=== PATIENT | male | born 1935 | race African-American/Black ===

== ENCOUNTER 2020-02-13 21:33 | Emergency (ER) | payer MEDICARE, OTHER ==
[~2020-02-13] VITALS: Ht 180.3 cm; Wt 91.0 kg
[2020-02-13 21:38] VITALS: BP 160/100
[2020-02-13] MEDS ORDERED: EPINEPHRINE 0.1MG/ML (1:10,000) 10ML SYR ONE (23:00)
[2020-02-14 01:38] LABS: HEMATOCRIT. 37.5 % (42.0-52.0); HEMOGLOBIN. 11.9 g/dL (14.0-18.0); MEAN CORPUSCULAR HEMOGLOBIN 27.9 pg (28.0-32.0); MEAN CORPUSCULAR VOLUME 87.4 fL (80.0-94.0); MEAN PLATELET VOLUME 9.3 fl (7.4-10.4); PLATELET 142 x1000/uL (130-400); RED BLOOD CELL COUNT 4.29 mill/uL (4.7-6.1); RED CELL DISTRIBUTION WIDTH 16.3 % (11.6-14.6)
[2020-02-14 01:41] LABS: CHLORIDE 124 mEq/L (98-107)
[2020-02-14 02:37] LABS: INR 1.2; PARTIAL THROMBOPLASTIN TIME 31.3 sec (23.4-31.0)
[2020-02-14 02:42] LABS: PLATELET ESTIMATE NORMAL
[2020-02-14] MEDS ORDERED: ASPIRIN 325MG EC TABLET PO NR (03:00)
[2020-02-14] MEDS ORDERED: SODIUM CHLORIDE 0.9% 1,000 ML IV NR (05:15)
[2020-02-14] MEDS ORDERED: PROPOFOL 10MG/ML 100ML 100 ML IV ONE (06:30)
== END 2020-02-14 06:41 ==
LOC: EDBD 21:33 → ER 21:33 → CANBEDREQ 02-14 06:58
DX: I46.9 Cardiac arrest, cause unspecified (principal); S00.03XA Contusion of scalp, initial encounter; N19 Unspecified kidney failure; R94.39 Abnormal result of other cardiovascular function study; F03.90 Unspecified dementia, unspecified severity, without behavioral disturbance, psychotic disturbance, mood disturbance, and anxiety; W06.XXXA Fall from bed, initial encounter; Y93.89 Activity, other specified; Y92.018 Other place in single-family (private) house as the place of occurrence of the external cause
CPT/HCPCS: 31500; 36415; 70450; 70486; 71045; 72170; 92950; 93005; 99291; J3490